=== PATIENT | female | born 1980 | race Caucasian/White ===

== ENCOUNTER 2018-02-13 16:20 | Emergency (ER) | payer MEDICAID ==
[2018-02-13 17:44] LABS: ADD MAN DIFF? NO
[2018-02-13 17:46] LABS: BASOPHILS % 0.4 % (0.0-2.0); EOSINOPHILS # 0.2 10^3/ul (0.0-0.5); HEMATOCRIT 38.8 % (37.0-47.0); HEMOGLOBIN 12.8 g/dl (12.0-16.0); LYMPHOCYTES # 2.2 10^3/ul (0.8-2.9); LYMPHOCYTES % 32.7 % (15.0-51.0); MEAN CORPUSCULAR HEMOGLOBIN 27.9 pg (29.0-33.0); MEAN CORPUSCULAR VOLUME 84.7 fl (82.0-101.0); MEAN PLATELET VOLUME 9.3 fl (7.4-10.4); MONOCYTE # 0.5 10^3/ul (0.3-0.9); MONOCYTES % 7.7 % (0.0-11.0); NEUTROPHIL # 3.8 10^3/ul (1.6-7.5); NEUTROPHILS % 56.1 % (39.0-77.0); PLATELET COUNT 294 10^3/UL (140-415); RED BLOOD COUNT 4.58 10^6/ul (4.20-5.40); RED CELL DISTRIBUTION WIDTH 13.7 % (11.5-14.5)
[2018-02-13 17:46] LABS: WHITE BLOOD COUNT 6.8 10^3/ul (4.8-10.8)
[2018-02-13 17:50] LABS: ADD UMIC YES; UR ASCORBIC ACID NEGATIVE (NEGATIVE); UR BILIRUBIN (Dip) NEGATIVE (NEGATIVE); UR BLOOD (Dip) 2+ mg/dL (NEGATIVE); UR CLARITY CLEAR (CLEAR); UR COLOR YELLOW (YELLOW); UR GLUCOSE (Dip) NEGATIVE (NEGATIVE); UR KETONES (Dip) NEGATIVE (NEGATIVE); UR LEUKOCYTE ESTERASE (Dip) NEGATIVE Leu/ul (NEGATIVE); UR NITRITE (Dip) NEGATIVE (NEGATIVE); UR RBC 0 /HPF (0-5); UR SPECIFIC GRAVITY (Dip) 1.017 (1.003-1.030); UR TOTAL PROTEIN (Dip) NEGATIVE (NEGATIVE); UR UROBILINOGEN (Dip) NEGATIVE (NEGATIVE); UR WBC 1 /HPF (0-5)
== END 2018-02-13 20:11 | disposition home or self-care (01) ==
LOC: FTE 16:20
DX: O20.0 Threatened abortion (principal); R10.2 Pelvic and perineal pain; Z3A.10 10 weeks gestation of pregnancy
CPT/HCPCS: 76801; 76817; 81001; 84702; 85025; 86900; 86901; 99284-25

== ENCOUNTER 2018-02-16 01:15 | Emergency (ER) | payer SELFPAY, MEDICAID | END 2018-02-16 04:33 | disposition left against medical advice (07) | LOC: FTE 01:15 | DX: Z53.21 Procedure and treatment not carried out due to patient leaving prior to being seen by health care provider (principal) ==

== ENCOUNTER 2018-02-24 09:36 | Day surgery (SDC) | payer MEDICAID ==
[2018-02-24 10:36] LABS: ADD MAN DIFF? NO
[2018-02-24 10:41] LABS: ADD UMIC NO; UR ASCORBIC ACID NEGATIVE (NEGATIVE); UR BILIRUBIN (Dip) NEGATIVE (NEGATIVE); UR BLOOD (Dip) NEGATIVE (NEGATIVE); UR CLARITY CLEAR (CLEAR); UR COLOR YELLOW (YELLOW); UR GLUCOSE (Dip) NEGATIVE (NEGATIVE); UR KETONES (Dip) NEGATIVE (NEGATIVE); UR LEUKOCYTE ESTERASE (Dip) NEGATIVE Leu/ul (NEGATIVE); UR NITRITE (Dip) NEGATIVE (NEGATIVE); UR SPECIFIC GRAVITY (Dip) 1.014 (1.003-1.030); UR TOTAL PROTEIN (Dip) NEGATIVE (NEGATIVE); UR UROBILINOGEN (Dip) NEGATIVE (NEGATIVE)
[2018-02-24 10:42] LABS: BASOPHILS % 0.7 % (0.0-2.0); EOSINOPHILS # 0.2 10^3/ul (0.0-0.5); EOSINOPHILS % 3.7 % (0.0-7.0); HEMATOCRIT 36.8 % (37.0-47.0); HEMOGLOBIN 12.4 g/dl (12.0-16.0); LYMPHOCYTES # 1.9 10^3/ul (0.8-2.9); LYMPHOCYTES % 32.5 % (15.0-51.0); MEAN CORPUSCULAR HEMOGLOBIN 28.4 pg (29.0-33.0); MEAN CORPUSCULAR HGB CONC 33.7 g/dl (32.0-37.0); MEAN CORPUSCULAR VOLUME 84.2 fl (82.0-101.0); MEAN PLATELET VOLUME 9.7 fl (7.4-10.4); MONOCYTE # 0.4 10^3/ul (0.3-0.9); NEUTROPHIL # 3.2 10^3/ul (1.6-7.5); NEUTROPHILS % 55.6 % (39.0-77.0); PLATELET COUNT 284 10^3/UL (140-415); RED BLOOD COUNT 4.37 10^6/ul (4.20-5.40); RED CELL DISTRIBUTION WIDTH 13.6 % (11.5-14.5)
[2018-02-24 10:42] LABS: WHITE BLOOD COUNT 5.8 10^3/ul (4.8-10.8)
[2018-02-24] MEDS ORDERED: MIDAZOLAM 1 MG/ML 2 ML INJ (17:40)
[2018-02-24] MEDS ORDERED: LIDOCAINE 2% (SDV) 5 ML INJ (18:49)
[2018-02-24] MEDS ORDERED: NEOSTIGMINE 3 MG/3 ML SYRINGE (18:49)
[2018-02-24] MEDS ORDERED: PROPOFOL 20 ML (18:49)
[2018-02-24] MEDS ORDERED: GLYCOPYRROLATE 0.4 MG INJ (18:49)
[2018-02-24] MEDS ORDERED: ROCURONIUM 50 MG INJ (18:49)
[2018-02-24] MEDS ORDERED: CEFAZOLIN 1 GM INJ (18:50)
[2018-02-24] MEDS ORDERED: ONDANSETRON 4 MG INJ (18:51)
[2018-02-24] MEDS ORDERED: DIPHENHYDRAMINE 50 MG INJ IV (19:30)
[2018-02-24] MEDS ORDERED: FENTAnyl 50 MCG/ML VIAL IV (19:30)
[2018-02-24] MEDS ORDERED: METOCLOPRAMIDE 10 MG INJ IV (19:30)
[2018-02-24] MEDS ORDERED: MEPERIDINE 25 MG INJ IV (19:30)
[2018-02-24] MEDS: HYDROmorphONE 1 MG/5 ML IV SYRINGE IV ×3 (19:46→20:11)
[2018-02-24] MEDS: ONDANSETRON 4 MG INJ IV (20:12)
== END 2018-02-24 21:10 | disposition home or self-care (01) ==
LOC: SDS 21:10 → FTE 09:36 → SDS 17:22
DX: O00.101 Right tubal pregnancy without intrauterine pregnancy (principal)
CPT/HCPCS: 59151; 76801; 76817; 81003; 84702; 85025; 86900; 86901; 88305; 96374; 99285-25